=== PATIENT | male | born 1955 | race American Indian/Alaskan Native ===

== ENCOUNTER 2016-12-09 14:29 | Emergency (ER) | payer OTHER ==
[2016-12-09 15:17] VITALS: TEMP 97.7
[2016-12-09] MEDS ORDERED: Lidocaine 1% Inj (20ml) INFIL STA (16:51)
[2016-12-09] MEDS ORDERED: Bacitracin 500 Units/gm Oint Foilpak UD TOP ONE (16:51)
[2016-12-09] MEDS ORDERED: Lidocaine 1% Inj (20ml) ONE (16:55)
--- NOTE | 2016-12-09 16:56 | RAD ---
PROCEDURE: Right middle finger radiographs. HISTORY: trauma COMPARISON: None. TECHNIQUE: AP radiograph of the right hand, as well as spot oblique and lateral images of right middle finger were obtained. FINDINGS: RIGHT MIDDLE FINGER: Right middle finger normal, without fracture of focal lesion. Remainder of the right hand (as seen on the AP view) grossly unremarkable. JOINTS: Normal. SOFT TISSUES: Soft tissue injury noted at the tip of the 3rd finger. OTHER FINDINGS: None. IMPRESSION: No evidence of acute fracture or dislocation.
--- NOTE | 2016-12-09 18:14 | C.PDOC ---
History Of Present Illness 61 y/o male presents to ED with complaints of pain to right third finger after having finger caught accidentally on gate when closing parking lot today at 7am. Denies taking pain medication. Patient does not know last tetanus shot. No change in sensation. Time Seen by Provider: 12/09/16 16:14 Chief Complaint (Nursing): Abnormal Skin Integrity History Per: Patient History/Exam Limitations: no limitations Onset/Duration Of Symptoms: Hrs Current Symptoms Are (Timing): Still Present Location Of Injury: Right: Hand Quality Of Symptoms: Painful Past Medical History Reviewed: Historical Data, Nursing Documentation, Vital Signs Vital Signs: Last Vital Signs Temp 97.7 F 12/09/16 18:22 Pulse 66 12/09/16 18:22 Resp 16 12/09/16 18:22 BP 145/86 12/09/16 18:22 Pulse Ox 98 12/09/16 19:50 - Medical History PMH: No Chronic Diseases Surgical History: No Surg Hx Family History: States: No Known Family Hx - Social History Hx Alcohol Use: No Hx Substance Use: No - Immunization History Hx Tetanus Toxoid Vaccination: No Hx Influenza Vaccination: No Hx Pneumococcal Vaccination: No Review Of Systems Except As Marked, All Systems Reviewed And Found Negative. Constitutional: Negative for: Fever, Chills Gastrointestinal: Negative for: Nausea, Vomiting Musculoskeletal: Positive for: Hand Pain Skin: Negative for: Rash Neurological: Negative for: Weakness, Numbness Physical Exam - Physical Exam Appears: Non-toxic, No Acute Distress Skin: Warm, Dry, No Rash Head: Atraumatic, Normacephalic Eye(s): bilateral: Normal Inspection, EOMI Oral Mucosa: Moist Neck: Normal ROM, Supple Chest: Symmetrical Respiratory: No Accessory Muscle Use Extremity: Normal ROM, Capillary Refill (<2 seconds), No Deformity, No Swelling , Other (2 cm irregular laceration to right 3rd finger just lateral to nail ) Extremity: Bilateral: Normal ROM Pulses: Left Radial: Normal, Right Radial: Normal Neurological/Psych: Oriented x3, Normal Motor, Normal Sensation ED Course And Treatment O2 Sat by Pulse Oximetry: 98 (RA) Pulse Ox Interpretation: Normal - Other Rad right hand X-Ray: Interpreted by Me, Viewed By Me, Read By Radiologist Interpretation: PROCEDURE: Right middle finger radiographs. HISTORY: trauma. COMPARISON: None. TECHNIQUE: AP radiograph of the right hand, as well as spot oblique and lateral images of right middle finger were obtained. FINDINGS : RIGHT MIDDLE FINGER: Right middle finger normal, without fracture of focal lesion. Remainder of the right hand (as seen on the AP view) grossly unremarkable. JOINTS: Normal. SOFT TISSUES: Soft tissue injury noted at the tip of the 3rd finger. OTHER FINDINGS: None. IMPRESSION: No evidence of acute fracture or dislocation. Progress Note: Discussed wound care. Wound check in 2 days. Suture removal in 10 days. [facility]ructed to [facility] with plastic surgery in 2 days. Laceration - Laceration Repair finger Wound Length (In cm): 2 Description Of Wound: Irregular (very irregular and mangled) Wound Cleansed With: Betadine, Sterile Saline Anesthesia: Lidocaine 1% Wound Examination: Irrigated With Saline, No FB With Wound Exploration, No Tendon Injury With Wound Exploration Wound Closure: Suture Suture Technique And Material Used: Nylon (5) Disposition - Disposition Referrals: Petrona Bustos MD [Staff Provider] - Disposition: HOME/ ROUTINE Disposition Time: 18:12 Condition: STABLE Additional Instructions: Wound check in 2 days. Suture removal in 10 days. 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 - Scribe Statement The provider has reviewed the documentation as recorded by the Ganesh Gallagher All medical record entries made by the Freddyibvalerie were at my direction and personally dictated by me. I have reviewed the chart and agree that the record accurately reflects my personal performance of the history, physical exam, medical decision making, and the department course for this patient. I have also personally directed, reviewed, and agree with the discharge instructions and disposition.
[2016-12-09 18:23] VITALS: BP 145/86; PULSE 66; RESP 16
[2016-12-09 19:47] VITALS: O2SAT 98
== END 2016-12-09 18:25 | disposition home or self-care (01) ==
LOC: C.ER 14:29
DX: S61.212A Laceration without foreign body of right middle finger without damage to nail, initial encounter (principal); W23.0XXA Caught, crushed, jammed, or pinched between moving objects, initial encounter; Y93.89 Activity, other specified; Y92.481 Parking lot as the place of occurrence of the external cause; Y99.0 Civilian activity done for income or pay; Z23 Encounter for immunization